=== PATIENT | female | born 1980 | race Caucasian/White ===

== ENCOUNTER 2018-05-31 18:16 | Emergency (ER) | payer BC, OTHER ==
[2018-05-31 18:55] VITALS: BP 129/83
--- NOTE | 2018-05-31 19:27 | UC ---
Complaint Female HPI - HPI Summary HPI Summary: 37-year-old woman comes in to clinic today with a chief complaint of burning with urination. This been going on for 2 days. She feels like she has to go more often and she doesn't completely empty. No fevers or chills. He does not have any concerns about an STI. With her lupus she has some chronic back pain at which she has right now so she can't tell if the back pain is acute or not. - History Of Current Complaint Chief Complaint: UCGU Stated Complaint: URINARY Time Seen by Provider: 05/31/18 19:01 Hx Last Menstrual Period: 05/25/2018 Pain Intensity: 4 - Allergies/Home Medications Allergies/Adverse Reactions: Allergies Allergy/AdvReac Type Severity Reaction Status Date / Time gatifloxacin [From Tequin] Allergy Intermediate Rash Verified 05/31/18 18:47 Home Medications: Home Medications Control Pills 1 tab PO DAILY 05/31/18 [History Confirmed 05/31/18] Bupropion XL* [Wellbutrin XL *] 150 mg PO DAILY 05/31/18 [History Confirmed ] Folic Acid TAB* [Folvite TAB*] 1 mg PO DAILY 05/31/18 [History Confirmed ] Hydrochlorothiazide TAB* [Hydrodiuril TAB*] 25 mg PO DAILY 05/31/18 [History Confirmed 05/31/18] Levothyroxine TAB* [Synthroid TAB*] 25 mcg PO 0800 05/31/18 [History Confirmed 05/31/18] Omeprazole CAP* [Prilosec CAP* 20 MG] 40 mg PO DAILY 05/31/18 [History Confirmed 05/31/18] PMH/Surg Hx/FS Hx/Imm Hx Other Endocrine History: LUPUS - Surgical History Surgical History: Yes Surgery Procedure, Year, and Place: wisdom teeth - Family History Known Family History: Positive: Non-Contributory - Social History Alcohol Use: Occasionally Substance Use Type: None Smoking Status (MU): Light Every Day Tobacco Smoker Type: Cigarettes Amount Used/How Often: 3-4 cigarettes daily Review of Systems All Other Systems Reviewed And Are Negative: Yes Constitutional: Positive: Negative Skin: Positive: Negative Eyes: Positive: Negative ENT: Positive: Negative Respiratory: Positive: Negative Cardiovascular: Positive: Negative Gastrointestinal: Positive: Negative Genitourinary: Positive: Dysuria, Frequency, Urgency. Negative: Vaginal/Penile Discharge Motor: Positive: Negative Neurovascular: Positive: Negative Musculoskeletal: Positive: Negative Neurological: Positive: Negative Psychological: Positive: Negative Is Patient Immunocompromised?: No Physical Exam Triage Information Reviewed: Yes Appearance: Well-Appearing, No Pain Distress, Well-Nourished Vital Signs: Initial Vital Signs Temp 98.2 F 05/31/18 18:51 Pulse 89 05/31/18 18:51 Resp 16 05/31/18 18:51 BP 129/83 05/31/18 18:51 Pulse Ox 100 05/31/18 18:51 Vital Signs Reviewed: Yes Eyes: Positive: Conjunctiva Clear Neck: Positive: Supple Respiratory: Positive: Lungs clear, Normal breath sounds, No respiratory distress Cardiovascular: Positive: RRR Abdomen Description: Positive: Soft, CVA Tenderness (R), CVA Tenderness (L), Other: - MILD SUPRAPUBIC TENDERNESS Bowel Sounds: Positive: Present Musculoskeletal Exam: Normal Musculoskeletal: Positive: Strength Intact, ROM Intact Neurological Exam: Normal Neurological: Positive: Alert, Muscle Tone Normal Psychological Exam: Normal Psychological: Positive: Age Appropriate Behavior Skin Exam: Normal Complaint Female Dx - Differential Dx/Diagnosis Provider Diagnoses: UTI Discharge - Sign-Out/Discharge Documenting (check all that apply): Patient Departure All imaging exams completed and their final reports reviewed: No Studies - Discharge Plan Condition: Stable Disposition: HOME Prescriptions: Fluconazole [Diflucan 150 MG (NF)] 150 mg PO ONCE #2 tab Nitrofurantoin Monohyd/M-Cryst [Macrobid 100 mg Capsule] 100 mg PO BID #14 cap Phenazopyridine 200 mg (NF) [Pyridium 200 MG tab *] 200 mg PO TID PRN #10 tab PRN Reason: Pain Patient Education Materials: Urinary Tract Infection in Women (ED) Referrals: Benson Cates MD [Primary Care Provider] - Additional Instructions: FOLLOW UP WITH YOUR DOCTOR IF NOT COMPLETELY IMPROVED. GET RECHECKED FOR ANY WORSENING OF YOUR CONDITION; PAIN, FEVER, YOU FEEL ILL OR QUESTIONS OR CONCERNS. - Billing Disposition and Condition Condition: STABLE Disposition: Home
--- NOTE | 2018-06-05 07:35 | UC ---
- Progress Note Progress Note: Urine culture from May 31, 2018 comes back as previous. Bowel is that is resistant to cefazolin and nitrofurantoin. Nursing to call patient to determine if her UTI symptoms are gone. If she is not completely improved I have sent and a prescription for Augmentin that the culture shows the bacteria is susceptible to and the patient is to take the Augmentin. Discharge - Sign-Out/Discharge Documenting (check all that apply): Patient Departure All imaging exams completed and their final reports reviewed: No Studies - Discharge Plan Condition: Stable Disposition: HOME Prescriptions: Amoxicillin/Clavulanate TAB* [Augmentin TAB 875*] 875 mg PO BID #14 tab Cephalexin CAP* [Keflex CAP*] 500 mg PO TID #21 cap Fluconazole [Diflucan 150 MG (NF)] 150 mg PO ONCE #2 tab Nitrofurantoin Monohyd/M-Cryst [Macrobid 100 mg Capsule] 100 mg PO BID #14 cap Phenazopyridine 200 mg (NF) [Pyridium 200 MG tab *] 200 mg PO TID PRN #10 tab PRN Reason: Pain Patient Education Materials: Urinary Tract Infection in Women (ED) Referrals: Benson Cates MD [Primary Care Provider] - Additional Instructions: FOLLOW UP WITH YOUR DOCTOR IF NOT COMPLETELY IMPROVED. GET RECHECKED FOR ANY WORSENING OF YOUR CONDITION; PAIN, FEVER, YOU FEEL ILL OR QUESTIONS OR CONCERNS. - Billing Disposition and Condition Condition: STABLE Disposition: Home
== END 2018-05-31 19:38 | disposition home or self-care (01) ==
LOC: UCCORT 18:16
DX: N39.0 Urinary tract infection, site not specified (principal); M32.9 Systemic lupus erythematosus, unspecified; F17.210 Nicotine dependence, cigarettes, uncomplicated; Z88.8 Allergy status to other drugs, medicaments and biological substances
CPT/HCPCS: 81003; 87077; 87086; 87184; 87186; 99202; G0463

== ENCOUNTER 2019-09-15 18:30 | Emergency (ER) | payer BC ==
--- OUTSIDE RECORDS SUMMARY | 2019-09-15 18:41 | XMS REPORT | Continuity of Care Document ---
:1980 External Reference #:[id number] Author Name Blanca Mckeon PA-C (transmitted by agent of provider Lory Ureña) Address [address] [place] [address] Care Team Providers Name Role Phone Willy Rivera M.D.- Practice Closed Care Team Information Care Companion [phone] - Psychiatry [facility] Radiology Care Team Information Care Companion Marva Choi M.D. - no longer in Care Team Information Care Companion practice - Psychiatry Daniela Dennis MD - Obstetrics & Care Team Information Care Companion [phone] Gynecology Lory Henriquez MD - Obstetrics & Care Team Information Care Companion Gynecology Zaida Ritter MD - Obstetrics & Care Team Information Care Companion Gynecology Marva Cornejo CNM - Advanced Practice Care Team Information Care Companion Metal Furniture Assembler Jaki Jacobs M.D. - Care Team Information Care Companion [phone] Endocrinology, Diabetes & Metabolism Jeff Medellin MD- Not Accepting New Care Team Information Care Companion PTS - Endocrinology, Diabetes & Metabolism Eunice Johnson MD - Care Team Information Care Companion [phone] Endocrinology, Diabetes & Metabolism [facility] Care Team Information Care Companion [phone] - Endocrinology, Diabetes & Metabolism Glo Landers M.D. 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 Depressive disorder Blanca Mckeon PA-C Onset: 05/23/2009 Tobacco user Benson Cates JR, MD Onset: 06/23/2013 Bipolar disorder Benson Cates JR, MD Onset: 11/09/2013 Social History Type Date Description Comments Sex Unknown Cigarette Use 05/14/2016 Pack Years - 19 Tobacco Use Reviewed: 01/07/18 Current Cigarette Smoker 5-10 Cigarettes Daily ETOH Use Occasionally consumes alcohol Recreational Drug Use 03/30/2011 Denies Drug Use Tobacco Use Reviewed: 05/23/19 Patient is a current smoker, smokes every day Smoking Status Reviewed: 05/23/19 Patient is a current smoker, smokes every day Allergies, Adverse Reactions, Alerts Active Allergies Reaction Severity Comments Date Aspirin 04/14/2004 TeQuin 08/25/2010 Tequin 04/14/2004 Gluten 02/13/2014 Medications Active Medications SIG Qnty Indications Ordering Date Provider Bupropion Hydrochloride Take One Tablet 30tabs Benson Cates 07/06/2019 ER (XL) By Mouth Every MD ERICK 150mg Tablets ER 24HR Day Zithromax Z-Farhat 2 by mouth on 6tabs J39.8 Benson Cates 05/23/2019 250mg Tablets day 1, 1 by MD ERICK mouth on days 2-5 Vraylar 1 by mouth 30caps Benson Cates 05/10/2019 3mg Capsules every day MD ERICK Methylphenidate HCL one by mouth 90tabs R53.82 Benson Cates 12/16/2018 20mg 2-3 times a day MD ERICK Tablets Aimovig 1 injection 1ml [facility] 11/17/2018 70mg/ml Solution once a month. MD ERICK Auto-Inject excellus auth til 05/17/20 Cyclobenzaprine HCL 1 by mouth 30tabs [facility] 08/12/2018 10mg every night at MD ERICK Tablets bedtime Linzess 1 by mouth 30caps K59.09 [facility] 02/09/2018 290mcg Capsules every day MD ERICK Omeprazole Take One 30caps [facility] 11/20/[address] Capsule By MD ERICK Mouth Every Day-needs appt prior to more refills Westcort apply to 45gm Graciela 06/24/2017 0.2% Ointment affected area MD Gayatri twice a day as needed Hydrochlorothiazide Take Two 60caps [facility] 05/07/2017 12.5mg Capsules By MD ERICK Capsules Mouth Every Day as Needed Loryna one by mouth a 84tabs [facility] 07/27/2016 3-0.02mg Tablets day mckinley MD ERICK Meclizine HCL 1 by mouth 15tabs [facility] 11/12/2015 25mg Tablets three times a MD ERICK day as needed Synthroid 1 by mouth 30tabs E03.9 [facility] 09/10/2014 25mcg Tablets every day- MD ERICK Zomig 1 by mouth at 18tabs G43.109 [facility] 12/13/2012 5mg Tablets onset, repeat MD ERICK in 2 hours, max 2 /day Valtrex 2 by mouth 16tabs [facility] 10/28/2012 1gm Tablets twice a day x 1 MD ERICK day Albuterol Sulfate neb tid- qid 1Box [facility] 04/16/2009 1.25mg/3ML MD ERICK Nebulizer Ativan 1 tab by mouth 120tabs [facility] 0.5mg Tablets three times a MD ERICK day as needed anxiety, may take an extra tab at night Promethazine HCL 1 by mouth Unknown 25mg Tablets every day Cellcept Unknown 250mg Capsules Medications Administered in Office Medication SIG Qnty Indications Ordering Provider Date TB Intradermal Test Benson Cates JR, MD 03/30/2011 Injection TB Intradermal Test Alejandra Sanchez MD 03/11/2011 Injection Rocephin 1GM Blanca Mckeon PA-C 03/01/2009 Injection Toradol, 60 MG Leticia Hidalgo DO 03/21/2007 Injection Immunizations CPT Code Status Date Vaccine Lot # [id number] Given 03/28/2014 Flu, Multi-Dose Vial W/Preservative (Age 6Mo And Up)Quad 0.5 95764 Given 09/01/2011 Hepatitis B Vaccine Pediatric/Adolescent [id number] 01746 Given 05/15/2011 Hepatitis B Vaccine Pediatric/Adolescent [id number] 13251 Given 05/15/2011 Hepatitis B Vaccine Pediatric/Adolescent [id number] 79814 Given 03/30/2011 Varicella (Chicken Pox) Vaccine [id number] 87176 Given 03/30/2011 Flu Shot - 3 Yrs And Older - Preservative Free- [id number] Prefilled Syringe 79049 Given 03/11/2011 Hepatitis B Vaccine Adult [id number] 71736 Given 03/11/2011 Adacel - Tdap [id number] 39326 Given 05/01/2010 Varicella (Chicken Pox) Vaccine [id number] 76383 Given 05/01/2010 Flu Shot 3 Yrs And Above (Multi Dose Vial) [id number] 66282 Given 05/23/2009 H1N1 Vaccine [id number] 26547 Given 05/23/2009 H1N1 Administration 52406 Given 04/16/2009 Flu Shot 3 Yrs And Above (Multi Dose Vial) [id number] 68737 Given 05/03/2008 Flu Shot 3 Yrs And Above (Multi Dose Vial) [id number] 59165 Given 04/25/2007 Flu Shot 3 Yrs And Above (Multi Dose Vial) [id number] Vital Signs Date Vital Result Comment 05/23/2019 3:38pm BP Systolic 110 mmHg BP Diastolic 70 mmHg Heart Rate 72 /min Body Temperature 98.1 F Respiratory Rate 14 /min Weight 118.00 lb Weight 53.525 kg Height 62 inches 5'2" BMI (Body Mass Index) 21.6 kg/m2 08/31/2018 10:39am BP Systolic 110 mmHg BP Diastolic 74 mmHg Heart Rate 72 /min Body Temperature 97.9 F Respiratory Rate 20 /min Weight 137.00 lb Weight 62.143 kg Height 62 inches 5'2" BMI (Body Mass Index) 25.1 kg/m2 Results Test Acquired Date Facility Test Result H/L Range Note Laboratory test 05/23/2019 [facility] Pap-Lacny See Comments [address]/GC Amplified 05/23/2019 [facility] Specimen CERVICAL Description C. Trachomatis NEGATIVE (Neg) 2 N. Gonorrhoeae NEGATIVE (Neg) 3 Affirm Vpiii 05/23/2019 [facility] Trichomonas Negative Negative Gardnerella Negative Negative Gena Negative Negative Laboratory test finding 05/23/2019 [facility] TSH 1.005 uIU/mL 0.350- 4.940 Free T4 1.17 ng/dL 0.70-1.48 Laboratory test 05/23/2019 Lab [facility] HPV Laboratory Allia [address] <SEE NOTE> [place] [address] [phone] Order 05/23/2019 [facility] Care Digital Rectal neg [id number] [facility] [place] [place] [address] [phone] 1 [facility], [facility]. [facility] [place] [address] GYNECOLOGIC CYTOLOGY REPORT Patient Name: MERLY MILES :1980 (Age: 38) Physician(s): BLANCA THOMASON Accession Number: [id number] Source of Specimen(s): A: Thin Prep Cervical Pap Smear - One Vial Clinical Diagnosis and History: Date of Last Menstrual Period: 3 mos Other Clinical Conditions: Last Pap Smear: 3 mos nl REFLEX TO HPV ASSAY IF RESULTS OF THIS PAP ARE ASCUS Specimen Adequacy SATISFACTORY FOR EVALUATION PRESENCE OF ENDOCERVICAL/TRANSFORMATION ZONE COMPONENT General Categorization EPITHELIAL CELL ABNORMALITY Interpretation ATYPICAL SQUAMOUS CELLS OF UNDETERMINED SIGNIFICANCE (ASC-US) Acute inflammatory cells Processed and screened at [facility], Cytology, [address] [place] [address], [address]. Reported at [facility] at [facility], [address] [place] [address]. Reported: 05/25/2019 16:08 Electronically Signed Out By Familia Dee MD [facility] Personnel Manager: Yola BRENNAN(ASCP) [email or web address] ICD code: R87.610 CPT code: A: VR522A, 11995M Unless otherwise specified, testing performed by [facility] [address] [place] [address] 2 THIS ASSAY AMPLIFIES AND DETECTS TARGET DNA USING SELF SEALING FUEL TANK BUILDER-MEDIATED AMPLIFICATION 3 THIS ASSAY AMPLIFIES AND DETECTS TARGET DNA USING SELF SEALING FUEL TANK BUILDER-MEDIATED AMPLIFICATION Unless otherwise specified, testing performed by [facility] [address] [place] [address] 4 [facility] [place] [address] [address] Amplified Molecular High Risk HPV Test Patient Name:MERLY MILES Patient :1980 Ordering Physician:BLANCA THOMASON Accession Number [id number] Specimen(s) Received A: High Risk HPV Thin Prep Cervical Pap Smear - One Vial Other Case Numbers: [id number] Diagnosis RISK GROUPS RESULTS High Risk NEGATIVE Tested for HPV Types (16, 18, 31, 33, 35, 39, 45, 51, 52, 56, 58, 59, 66, 68) Reported: 05/29/2019 08:05 Electronically Signed Out By Bria Bolton [email or web address] Janna Herrera Procedures Description No Information Available Medical Devices Description No Information Available Encounters Type Date Location Provider Dx Diagnosis Office Visit 05/23/[address] Blanca Mckeon, Z01.419 Encntr for morgue keeper 3:30p MICHAEL exam (general) (routine) w/o abn findings Z12.12 Encounter for screening for malignant neoplasm of rectum R45.4 Irritability and anger E06.3 Autoimmune thyroiditis J39.8 Other specified diseases of upper respiratory tract L93.2 Other local lupus erythematosus Assessments Date Code Description Provider 05/23/2019 Z01.419 Encounter for gynecological examination KATELIN Blank (general) (routine) without abnormal findings 05/23/2019 Z12.12 Encounter for screening for malignant neoplasm Blanca Mckeon PA-C of rectum 05/23/2019 R45.4 Irritability and anger Blanca Mckeon PA-C 05/23/2019 E06.3 Autoimmune thyroiditis Blanca Mckeon PA-C 05/23/2019 J39.8 Other specified diseases of upper respiratory Blanca Mckeon PA-C tract 05/23/2019 L93.2 Other local lupus erythematosus Blanca Mckeon PA-C Plan of Treatment 05/23/2019 - KATELIN Blank-CZ01.419 Encounter for gynecological examination (general) (routine) without abnormal npahudnpZ70.12 Encounter for screening for malignant neoplasm of ugnnroN78.4 Irritability and angerComments:continue with medsE06.3 Autoimmune wplbioemrzhK41.8 Other specified diseases of upper respiratory tractNew Medication:Zithromax Z-Farhat 250 mg - 2 by mouth on day 1, 1 by mouth on days 2-5Comments:use an antihistamine, not improving take antibiotic but only if needed as then she tends to get yeast/bvFollow up: Followup:. (Follow up)L93.2 Other local lupus erythematosusComments:had labs done recently, did review. Functional Status Functional Condition Comment Date Status Glasses Active Contacts Active Mental Status Description No Information Available Referrals Description No Information Available
[2019-09-15 19:19] VITALS: BP 108/84
--- NOTE | 2019-09-15 20:34 | UC ---
Skin Complaint HPI - HPI Summary HPI Summary: 38-year-old female presents with 1 month history of a pruritic rash to her lower abdomen. States she has used some hydrocortisone cream a couple times with some improvement in symptoms but rash has returned soon as she stops using. Has taken one dose of Benadryl today with improvement in the itching. Denies fever, chills, the lips, tongue, throat, difficulty breathing, changes in medications, diet, soaps, lotions, detergents, perfumes, cosmetics, or known contact with environmental irritants. - History of Current Complaint Chief Complaint: UCRash Time Seen by Provider: 09/15/19 20:04 Stated Complaint: RASH Hx Obtained From: Patient Hx Last Menstrual Period: 08/17/19 Pain Intensity: 0 - Allergy/Home Medications Allergies/Adverse Reactions: Allergies Allergy/AdvReac Type Severity Reaction Status Date / Time gatifloxacin [From Tequin] Allergy Intermediate Rash Verified 09/15/19 19:19 Home Medications: Home Medications Control Pills 1 tab PO DAILY 05/31/18 [History Confirmed 05/31/18] Bupropion XL* [Wellbutrin XL *] 150 mg PO DAILY 05/31/18 [History Confirmed 12/29] Folic Acid TAB* [Folvite TAB*] 1 mg PO DAILY 05/31/18 [History Confirmed ] Hydrochlorothiazide TAB* [Hydrodiuril TAB*] 25 mg PO DAILY 05/31/18 [History Confirmed 09/15/19] Levothyroxine TAB* [Synthroid TAB*] 25 mcg PO 0800 05/31/18 [History Confirmed 09/15/19] Omeprazole CAP (NF) [Prilosec CAP* 20 MG] 40 mg PO DAILY 05/31/18 [History Confirmed 09/15/19] Cariprazine HCl [Vraylar] 3 mg PO DAILY 09/15/19 [History Confirmed 09/15/19] Methylphenidate ER [Concerta] 27 mg PO DAILY 09/15/19 [History Confirmed ] Triamcinolone 0.5% CREAM(NF) [Triamcinolone 0.5% CREAM*] 1 applic TOPICAL BID # 1 tube 09/15/19 [Rx] PMH/Surg Hx/FS Hx/Imm Hx - Additional Past Medical History Additional PMH: Lupus Endocrine History: Thyroid Disease Cardiovascular History: Hypertension GI/ History: Gastroesophageal Reflux Psychological History: Anxiety, Bipolar Disorder - Surgical History Surgical History: Yes Surgery Procedure, Year, and Place: wisdom teeth - Family History Known Family History: Positive: Hypertension - Social History Occupation: Employed Full-time Lives: Alone Alcohol Use: Occasionally Substance Use Type: None Smoking Status (MU): Light Every Day Tobacco Smoker Type: Cigarettes Amount Used/How Often: 3-4 cigarettes daily Review of Systems All Other Systems Reviewed And Are Negative: Yes Constitutional: Negative: Fever, Chills Skin: Positive: Rash Respiratory: Positive: Negative Cardiovascular: Positive: Negative Gastrointestinal: Positive: Negative Genitourinary: Positive: Negative Musculoskeletal: Positive: Negative Neurological/Mental Status: Positive: Negative Is Patient Immunocompromised?: No Physical Exam - Summary Physical Exam Summary: GENERAL APPEARANCE: Well developed, well nourished, alert and cooperative, and appears to be in no acute distress. CARDIAC: Normal S1 and S2. No S3, S4 or murmurs. Rhythm is regular. There is no peripheral edema, cyanosis or pallor. Extremities are warm and well perfused. Capillary refill is less than 2 seconds. Peripheral pulses intact. LUNGS: Clear to auscultation without rales, rhonchi, wheezing or diminished breath sounds. ABDOMEN: Positive bowel sounds. Soft, nondistended, nontender. No guarding or rebound. No masses or hepatosplenomegally. MUSKULOSKELETAL: ROM intact to all extremities. No joint erythema or tenderness. Normal muscular development. Normal gait. SKIN: Skin normal color, texture and turgor. Mildly erythematous maculopapular rash to lower abdomen at waistline. Triage Information Reviewed: Yes Vital Signs: Initial Vital Signs Temp 98.4 F 09/15/19 19:13 Pulse 92 09/15/19 19:13 Resp 16 09/15/19 19:13 BP 108/84 09/15/19 19:13 Pulse Ox 100 09/15/19 19:13 Vital Signs Reviewed: Yes Course/Dx - Course Course Of Treatment: 38-year-old female presents with 1 month history of a pruritic rash to her lower abdomen. States she has used some hydrocortisone cream a couple times with some improvement in symptoms but rash has returned soon as she stops using. Has taken one dose of Benadryl today with improvement in the itching. Denies fever, chills, the lips, tongue, throat, difficulty breathing, changes in medications, diet, soaps, lotions, detergents, perfumes, cosmetics, or known contact with environmental irritants. Afebrile. Vital signs stable. He should was noted to have a mildly erythematous maculopapular rash to lower abdomen at waistline was unremarkable exam. Discussed with the patient that I was unsure the exact cause of the rash however since it was improving with the hydrocortisone cream recommending that he try a higher potency topical steroid to treat her symptoms. We'll start her on triamcinolone 0.5% cream twice a day for up to 2 weeks. She is to follow-up with primary care provider in 5-7 days if symptoms are not improving. His paternal guidance and warning symptoms were reviewed with the patient. Verbalizes understanding and agrees with plan of care. - Differential Diagnoses - Skin Complaint Differential Diagnoses: Allergic Reaction, Cellulitis, Contact Dermatitis, Drug Rash, Local Allergic Reaction, Poison [place], Poison [place], Scabies, Tinea - Diagnoses Provider Diagnosis: Dermatitis Discharge ED - Sign-Out/Discharge Documenting (check all that apply): Patient Departure All imaging exams completed and their final reports reviewed: No Studies - Discharge Plan Condition: Stable Disposition: HOME Prescriptions: Triamcinolone 0.5% CREAM(NF) [Triamcinolone 0.5% CREAM*] 1 applic TOPICAL BID # 1 tube Patient Education Materials: Dermatitis (ED) Referrals: Benson Cates MD [Primary Care Provider] - 5 Days Additional Instructions: I am unsure of the exact cause of your rash however since he did have some improvement using the hydrocortisone cream we will prescribe you a higher potency steroid cream to use. Start triamcinolone cream. Apply a thin layer to the affected area(s) twice a day for up to 2 weeks. Follow-up with your primary care provider in 5-7 days if symptoms are not improving. Seek immediate medical attention in the emergency room if you develop swelling of the lips, tongue, throat, difficulty breathing, or any worsening of symptoms. - Billing Disposition and Condition Condition: STABLE Disposition: Home
== END 2019-09-15 20:39 | disposition home or self-care (01) ==
LOC: UCCORT 18:30
DX: L30.9 Dermatitis, unspecified (principal); K21.9 Gastro-esophageal reflux disease without esophagitis; I10 Essential (primary) hypertension; E07.9 Disorder of thyroid, unspecified; F17.210 Nicotine dependence, cigarettes, uncomplicated; Z79.899 Other long term (current) drug therapy; Z88.1 Allergy status to other antibiotic agents
CPT/HCPCS: 99212; G0463

== ENCOUNTER 2019-11-08 15:03 | Emergency (ER) | payer BC ==
[2019-11-08 15:19] VITALS: BP 122/85
== END 2019-11-08 16:36 | disposition home or self-care (01) ==
LOC: UCCORT 15:03

== ENCOUNTER 2023-08-05 08:55 | Observation (INO) ==
[2023-08-05] MEDS ORDERED: Lactated Ringers 1000 ml BAG 1,000 ML IV ONE (09:50)
[2023-08-05] MEDS ORDERED: Ondansetron 4 mg VIAL 2 MG/ML 2 ml VIAL IV ONE (10:12)
[2023-08-05 10:23] LABS: ABS Lymphocytes 1.1 10^3/uL (1.0-4.8); ABS Monocytes 0.4 10^3/uL (0.0-0.9); ABS Neutrophils 3.8 10^3/uL (1.5-7.6); ABS Nucleated RBC 0.01 10^3/ul; Eosinophil % 0.1 %; Hematocrit 34.6 % (35-45); Lymphocyte % 21.2 %; Mean Corpuscular Hemoglobin 31.3 pg (27-33); Mean Corpuscular Hgb Conc 34.7 g/dL (31-36); Nucleated Red Blood Cells % 0.2 %/100WBC (0.0-0.8); Platelet Count 192 10^3/uL (150-450); Red Blood Count 3.84 10^6/uL (3.63-4.92); Red Cell Distribution Width 13.3 % (12-17); White Blood Count 5.3 10^3/uL (3.8-11.8)
[2023-08-05 10:47] LABS: ALT 19 U/L (7-52); AST 24 U/L (13-39); Albumin 3.7 g/dL (3.2-5.2); Albumin/Globulin Ratio 1.5 (1-3); Alkaline Phosphatase 41 U/L (35-149); Anion Gap 16 mmol/L (2-16); Blood Urea Nitrogen 6 mg/dL (6-24); C Reactive Protein < 1.00 mg/L (<8.01); CO2 Carbon Dioxide 21 mmol/L (22-32); Calcium 8.6 mg/dL (8.6-10.3); Chloride 99 mmol/L (101-111); Creatinine, Serum 0.89 mg/dL (0.51-0.95); Globulin 2.4 g/dL (2-4); Glucose 89 mg/dL (70-100); Lipase < 10 U/L (11.0-82.0); Potassium 2.6 mmol/L (3.5-5.0); Sodium 136 mmol/L (135-145); Total Bilirubin 0.9 mg/dL (0.2-1.0); Total Protein 6.1 g/dL (6.4-8.9); eGFR CKD-EPI 82.4 (>60)
[2023-08-05] MEDS ORDERED: Magnesium Sulfate 2 gm BAG 2 GM/50 ML BAG IVPB ONE (11:11)
[2023-08-05 11:26] LABS: Urine Appearance Cloudy; Urine Bilirubin Negative (Negative); Urine Blood Negative (Negative); Urine Color Yellow; Urine Glucose Negative (Negative); Urine Ketones Trace (Negative); Urine Nitrite Negative (Negative); Urine Protein Negative (Negative); Urine Specific Gravity 1.006 (1.002-1.030); Urine Urobilinogen Negative (Negative)
[2023-08-05] MEDS ORDERED: Iohexol 300 (CONTRAST) 10 ML SDV IV ONE (11:26)
[2023-08-05] MEDS: KCL 20 MEQ/100 ML IVPREMIX 20 MEQ/100 ML BAG IV SCH ×3 (11:51→18:42)
[2023-08-05 12:31] LABS: HCG Pregnancy < 0.60 mIU/mL; Magnesium 1.7 mg/dL (1.9-2.7)
[2023-08-05] MEDS ORDERED: Droperidol 5 MG/2 ML 2 ML VIAL IV ONE (12:49)
[2023-08-05 13:01] LABS: Urine Bacteria 1+ (Absent); Urine Red Blood Cell Trace(0-2/hpf) (Absent); Urine Squamous Epithelial Cell Present (Absent); Urine White Blood Cell Trace(0-5/hpf) (Absent)
[2023-08-05] MEDS ORDERED: Lactated Ringers 1000 ml BAG 1,000 ML IV SCH (14:00)
[2023-08-05] MEDS ORDERED: cefTRIAXone 1 gm/50 mL D5W 1 GM/50 ML BAG IV SCH (16:00)
[2023-08-05] MEDS: Ondansetron 4 mg VIAL 2 MG/ML 2 ml VIAL IV PRN ×2 (18:04→23:37)
[2023-08-05] MEDS ORDERED: LUMATEPERONE 42 MG PO SCH (21:00)
[2023-08-05 21:09] LABS: Calcium 7.5 mg/dL (8.6-10.3); Creatinine, Serum 0.84 mg/dL (0.51-0.95); Potassium 3.5 mmol/L (3.5-5.0); eGFR CKD-EPI 88.4 (>60)
[2023-08-06 06:41] LABS: ABS Lymphocytes 1.3 10^3/uL (1.0-4.8); ABS Monocytes 0.2 10^3/uL (0.0-0.9); Eosinophil % 0.2 %; Hematocrit 29.4 % (35-45); Hemoglobin 10.2 g/dL (11.5-14.3); Lymphocyte % 35.4 %; Mean Corpuscular Hemoglobin 31.3 pg (27-33); Mean Corpuscular Hgb Conc 34.7 g/dL (31-36); Mean Corpuscular Volume 90.3 fL (80-97); Mean Platelet Volume 8.9 fL (7.5-11.2); Platelet Count 148 10^3/uL (150-450); Red Blood Count 3.26 10^6/uL (3.63-4.92); Red Cell Distribution Width 13.2 % (12-17); White Blood Count 3.6 10^3/uL (3.8-11.8)
[2023-08-06 06:50] LABS: Calcium 7.1 mg/dL (8.6-10.3); Creatinine, Serum 0.83 mg/dL (0.51-0.95); Magnesium 1.7 mg/dL (1.9-2.7); Potassium 3.3 mmol/L (3.5-5.0); eGFR CKD-EPI 89.6 (>60)
[2023-08-06] MEDS ORDERED: Potassium Chlor 20 meq TAB.ER PO ONE (07:30)
[2023-08-06] MEDS ORDERED: Magnesium Sulfate 2 gm BAG 2 GM/50 ML BAG IVPB ONE (07:36)
[2023-08-06] MEDS: Ondansetron 4 mg VIAL 2 MG/ML 2 ml VIAL IV PRN ×2 (08:00→12:02)
[2023-08-06 09:58] VITALS: BP 111/64
== END 2023-08-06 12:40 | disposition home or self-care (01) ==
LOC: ED 08:55 → EDHOLD 08:55 → MED 15:18
PROVIDERS: ADMIT Hospitalist; ATTEND Hospitalist

== ENCOUNTER 2023-08-11 11:42 | Observation (INO) ==
[2023-08-11 12:26] LABS: ABS Monocytes 0.4 10^3/uL (0.0-0.9); ABS Neutrophils 3.1 10^3/uL (1.5-7.6); Eosinophil % 0.1 %; Hematocrit 37.4 % (35-45); Hemoglobin 12.5 g/dL (11.5-14.3); Lymphocyte % 22.5 %; Mean Corpuscular Hemoglobin 30.9 pg (27-33); Mean Corpuscular Hgb Conc 33.5 g/dL (31-36); Mean Corpuscular Volume 92.2 fL (80-97); Mean Platelet Volume 8.8 fL (7.5-11.2); Nucleated Red Blood Cells % 0.1 %/100WBC (0.0-0.8); Platelet Count 199 10^3/uL (150-450); Red Blood Count 4.06 10^6/uL (3.63-4.92); Red Cell Distribution Width 13.8 % (12-17); White Blood Count 4.5 10^3/uL (3.8-11.8)
[2023-08-11 12:46] LABS: INR 1.13 (0.83-1.13)
[2023-08-11 12:49] LABS: Albumin 3.3 g/dL (3.2-5.2); Albumin/Globulin Ratio 1.4 (1-3); Calcium 8.3 mg/dL (8.6-10.3); Creatinine, Serum 0.86 mg/dL (0.51-0.95); Globulin 2.4 g/dL (2-4); Potassium 3.4 mmol/L (3.5-5.0); Total Bilirubin 0.7 mg/dL (0.2-1.0); Total Protein 5.7 g/dL (6.4-8.9); eGFR CKD-EPI 85.9 (>60)
[2023-08-11] MEDS ORDERED: Potassium EFFERVES 25 meq TAB PO ONE (13:36)
[2023-08-11] MEDS ORDERED: Potassium Chlor 20 meq TAB.ER PO ONE (13:46)
[2023-08-11] MEDS ORDERED: KCL 10 MEQ/50 ML IVPREMIX 10 MEQ/50 ML BAG IV SCH (14:00)
[2023-08-11 14:01] LABS: High Sensitivity Troponin 1 Hr 56 pg/mL (<15)
[2023-08-11] MEDS ORDERED: Heparin - STEMI 5,000 UNITS/ML 1 ml VIAL IV ONE (14:39)
[2023-08-11] MEDS ORDERED: Heparin DRIP 25,000 UNITS BAG 25,000 UNITS/250 ML BAG IV SCH (14:45)
[2023-08-11 14:57] LABS: HDL Cholesterol 63.5 mg/dL; Magnesium 1.5 mg/dL (1.9-2.7)
[2023-08-11] MEDS ORDERED: Heparin 5000 UNITS/ML 1 mL VIAL IV SCH (15:00)
[2023-08-11 15:14] LABS: ABS Lymphocytes 1.3 10^3/uL (1.0-4.8); ABS Monocytes 0.3 10^3/uL (0.0-0.9); ABS Neutrophils 2.5 10^3/uL (1.5-7.6); Eosinophil % 0.1 %; Hematocrit 33.6 % (35-45); Hemoglobin 11.4 g/dL (11.5-14.3); Lymphocyte % 30.7 %; Mean Corpuscular Hemoglobin 31.2 pg (27-33); Mean Corpuscular Hgb Conc 33.8 g/dL (31-36); Mean Corpuscular Volume 92.2 fL (80-97); Mean Platelet Volume 9.1 fL (7.5-11.2); Nucleated Red Blood Cells % 0.1 %/100WBC (0.0-0.8); Platelet Count 191 10^3/uL (150-450); Red Blood Count 3.65 10^6/uL (3.63-4.92); Red Cell Distribution Width 13.7 % (12-17); White Blood Count 4.1 10^3/uL (3.8-11.8)
[2023-08-11 15:33] LABS: Creatinine, Serum 0.81 mg/dL (0.51-0.95); eGFR CKD-EPI 92.3 (>60)
[2023-08-11] MEDS: Ondansetron 4 mg VIAL 2 MG/ML 2 ml VIAL IV PRN ×2 (15:41→22:06)
[2023-08-11] MEDS ORDERED: Magnesium Sulfate 2 gm BAG 2 GM/50 ML BAG IVPB ONE (15:59)
[2023-08-11] MEDS ORDERED: Ondansetron ODT 4 mg TAB 4 MG TAB SL PRN (16:00)
[2023-08-11 16:10] LABS: TSH Ultra Thyroid Stim Horm 0.82 mcIU/mL (0.34-5.60)
[2023-08-11] MEDS ORDERED: Ondansetron ODT 4 mg TAB 4 MG TAB PO PRN (17:02)
[2023-08-11] MEDS ORDERED: Magnesium Sulfate IV 1GM/100ML 1 GM/100 ML BAG IV ONE (17:59)
[2023-08-11] MEDS ORDERED: LUMATEPERONE 42 MG PO SCH (21:00)
[2023-08-12 03:05] LABS: ABS Lymphocytes 1.7 10^3/uL (1.0-4.8); ABS Monocytes 0.3 10^3/uL (0.0-0.9); ABS Neutrophils 1.6 10^3/uL (1.5-7.6); ABS Nucleated RBC 0.01 10^3/ul; Eosinophil % 0.3 %; Hematocrit 30.1 % (35-45); Hemoglobin 10.4 g/dL (11.5-14.3); Lymphocyte % 46.3 %; Mean Corpuscular Hemoglobin 31.5 pg (27-33); Mean Corpuscular Hgb Conc 34.5 g/dL (31-36); Mean Corpuscular Volume 91.2 fL (80-97); Mean Platelet Volume 9.1 fL (7.5-11.2); Nucleated Red Blood Cells % 0.2 %/100WBC (0.0-0.8); Platelet Count 161 10^3/uL (150-450); White Blood Count 3.7 10^3/uL (3.8-11.8)
[2023-08-12 04:01] LABS: Calcium 7.5 mg/dL (8.6-10.3); Creatinine, Serum 0.86 mg/dL (0.51-0.95); Magnesium 2.1 mg/dL (1.9-2.7); Potassium 3.6 mmol/L (3.5-5.0); eGFR CKD-EPI 85.9 (>60)
[2023-08-12] MEDS: Ondansetron 4 mg VIAL 2 MG/ML 2 ml VIAL IV PRN (06:00)
[2023-08-12] MEDS ORDERED: Potassium Chlor 20 meq TAB.ER PO ONE (08:25)
[2023-08-12] MEDS ORDERED: fentaNYL 100 mcg/2 ml 50 MCG/ML VIAL IV SLOW PU ONE (08:53)
[2023-08-12] MEDS ORDERED: Naloxone 0.4 mg VIAL 0.4 mg/ml 1 ml VIAL IV PUSH PRN (08:53)
[2023-08-12] MEDS ORDERED: Midazolam 10 mg/10 ml VIAL 1 mg/ml 10 ml VIAL (10 mg) IV SLOW PU ONE (08:53)
[2023-08-12] MEDS ORDERED: Flumazenil 0.5 mg/5 ml 0.1 MG/ML 5 ml VIAL IV PRN (08:53)
[2023-08-12] MEDS ORDERED: Heparin 1,000 UNIT/ML 10 ml (10,000 UNITS) CATHLAB/DIALYSIS ONE (08:56)
[2023-08-12] MEDS ORDERED: nitroGLYCERIN DRIP 25,000 MCG/250 ML BTL ONE (08:56)
[2023-08-12] MEDS ORDERED: Heparin 2 UNITS/ML 1000 mls 3,000 ML IV ONE (08:56)
[2023-08-12] MEDS ORDERED: Lidocaine 1% MPF 5 ML VIAL ONE (08:56)
[2023-08-12] MEDS ORDERED: Iohexol 350 (CONTRAST) 100 ML PAK IV ONE ×2 (08:56→09:34)
[2023-08-12] MEDS ORDERED: niCARdipine 0.1MG/ML IVPREMIX 20 MG/200 ML BAG IV ONE (08:57)
[2023-08-12] MEDS ORDERED: ETHINYL ESTRADIOL PO SCH (09:00)
[2023-08-12] MEDS ORDERED: DROSPIRENONE TABLE T PO SCH (09:00)
[2023-08-12] MEDS ORDERED: fentaNYL 100 mcg/2 ml 50 MCG/ML VIAL ONE (09:16)
[2023-08-12] MEDS ORDERED: Midazolam 5 mg/5 ml VIAL 1 mg/ml 5 ml VIAL (5 mg) ONE (09:16)
[2023-08-12] MEDS ORDERED: Ondansetron ODT 4 mg TAB 4 MG TAB ONE (10:33)
[2023-08-12 13:06] VITALS: BP 93/64
== END 2023-08-12 13:00 | disposition home or self-care (01) ==
LOC: EDHOLD 11:42 → ED 11:42 → AA 08-12 07:09
PROVIDERS: ADMIT Internal Medicine; ATTEND Internal Medicine